=== PATIENT | female | born 1955 | race Hispanic/Latino ===

== ENCOUNTER → 2022-08-13 | Day surgery (SDC) | payer SELFPAY ==
[~2022-08-13] MED LIST: ASPIRIN81 MG PO; CALCIUM ACETAT667 M1 PO; OMEGA 3 1,0001 EACH PO; OR PHACO EYE KIT ONE; PRAVASTATIN SOD40 MG PO; PREOP PHACO EYE KIT ONE; TRIBENZOR 40-11 EACH PO; TYLENOL EXTRA500 M2 PO; VITAMIN C1000 MG PO; VITAMIN D250 MCG PO
[2022-08-13 11:00] VITALS: BP 133/66
== END | disposition home or self-care (01) ==
LOC: OR 08:36
PROVIDERS: ATTEND Ophthalmology
DX: H25.11 Age-related nuclear cataract, right eye (principal); I25.10 Atherosclerotic heart disease of native coronary artery without angina pectoris; I10 Essential (primary) hypertension; E78.5 Hyperlipidemia, unspecified; Z79.82 Long term (current) use of aspirin; Z79.899 Other long term (current) drug therapy

== ENCOUNTER → 2022-09-10 | Day surgery (SDC) | payer SELFPAY ==
[~2022-09-10] MED LIST changes: +FENTANYL CITRATE/PF 100MCG/2 ML INJ ONE; +MIDAZOLAM HCL 2 MG/2 ML VIAL ONE
[2022-09-10 12:00] VITALS: BP 106/49
== END | disposition home or self-care (01) ==
LOC: OR 08:20
PROVIDERS: ATTEND Ophthalmology
DX: H25.12 Age-related nuclear cataract, left eye (principal); I10 Essential (primary) hypertension; Z79.82 Long term (current) use of aspirin; Z79.899 Other long term (current) drug therapy
CPT/HCPCS: 66984; J2250; J3010; V2632